=== PATIENT | male | born 1945 | race African-American/Black ===

== ENCOUNTER 2022-11-20 16:30 | Emergency (ER) | payer OTHER, MEDICARE ==
[2022-11-20 16:36] VITALS: BP 131/56; PULSE 60; RESP 18; TEMP 98.6; BMI 27.9
[2022-11-20 19:07] LABS: BASO % 0.6 % (0-2.0); EOS % 1.4 % (0-4.5); HEMATOCRIT 46.5 % (35.4-49); HEMOGLOBIN 15.5 GM/dL (11.7-16.9); LYMPH % 15.4 % (8-40); MCH 30.7 pg (25.7-33.7); MCHC 33.4 g/dl (32.0-35.9); MEAN PLT VOLUME 10.3 fl (7.5-11.1); MONO % 5.5 % (3.8-10.2); NEUT % 77.1 % (42.8-82.8); PH,URINE 5.5 (5.0-8.0); PLATELET COUNT 226 10^3/uL (134-434); RBC 5.05 M/mm3 (4.00-5.60); RDW 14.4 % (11.9-15.9); URINE APPEARANCE CLEAR; URINE BILIRUBIN NEGATIVE (NEGATIVE); URINE COLOR YELLOW; URINE GLUCOSE (UA) NEGATIVE (NEGATIVE); URINE KETONE NEGATIVE (NEGATIVE); URINE LEUK ESTERASE NEGATIVE (NEGATIVE); URINE NITRITE NEGATIVE (NEGATIVE); URINE PROTEIN NEGATIVE (NEGATIVE); URINE UROBILINOGEN 0.2 mg/dL (0.2-1.0); WHITE BLOOD COUNT 10.2 K/mm3 (4.0-10.0)
[2022-11-20 19:27] LABS: ALBUMIN 4.1 g/dl (3.4-5.0); BLOOD UREA NITROGEN 14.9 mg/dL (7-18); CALCIUM 9.1 mg/dL (8.5-10.1)
[2022-11-20 19:30] LABS: CREATININE 1.5 mg/dL (0.55-1.3)
[2022-11-20 19:31] LABS: BILIRUBIN,TOTAL 0.4 mg/dL (0.2-1)
[2022-11-20 19:32] LABS: TOT PROT 7.5 g/dl (6.4-8.2)
[2022-11-20] MEDS ORDERED: SODIUM CHLORIDE 0.9% 500 ML INFUS.BAG IV ONE (19:40)
== END 2022-11-21 00:20 | disposition home or self-care (01) ==
LOC: JER 16:30
DX: R10.32 Left lower quadrant pain (principal)
CPT/HCPCS: 36415; 74177-TC; 80053; 81003; 83605; 83690; 85025; 99285-25